=== PATIENT | male | born 1950 | race Caucasian/White ===

== ENCOUNTER → 2017-04-27 | Outpatient (CLI) | payer MEDICARE, BC ==
[~2017-04-27] MED LIST: ASPIR-TRIN325 MG PO; ASPIRIN CHILDRE81 M1 PO; BLOOD PRESSURE MED OR; FLEXERIL10 MG PO; HYDROCODONE/ACE1 TA5 PO; LIPITOR20 M1 PO; LISINOPRIL 10MG10 MG PO; METFORMIN500 MG PO; METOPROLOL25 MG PO; NAPROSYN 375MG375 MG PO; NORCO 325 MG-51 TAB PO; PLAVIX 75MG TAB75 MG PO; PLAVIX75 MG PO; PREDNISONE 20MG20 MG PO; VALIUM 5MG TABLE5 MG PO; VICODIN 5/500 T1 TAB PO; [UNRECOGNIZED DRUG - REMARK] OR
--- NOTE | 2017-04-27 20:48 | RADIOLOGY REPORT PS360 ---
KNEE-3 VIEWS-LT HISTORY: LEFT KNEE PAIN, EFFUSION ORDERING PHYSICIAN: Summer López MD PATIENT AGE: 66 years COMPARISON: None FINDINGS: No fracture or dislocation. No lytic or blastic change. Normal mineralization. There are minimal osteoarthritic changes of the medial compartment and patellofemoral joint. No fracture or dislocation. No lytic or blastic change. There is minimal chondrocalcinosis of the medial meniscus. IMPRESSION: Mild osteoarthritis with chondrocalcinosis
== END ==
LOC: RAD 17:07
DX: M25.562 Pain in left knee (principal)

== ENCOUNTER 2017-06-14 09:40 | Emergency (ER) | payer MEDICARE ==
[~2017-06-14] VITALS: Ht 188 cm; Wt 109.8 kg
[2017-06-14 10:05] LABS: LYMPH # 2.3 K/mm3 (0.7-4.5); LYMPH % 29.3 % (10-50)
[2017-06-14 10:12] LABS: HEMOGLOBIN 15.8 g/dL (14.1-18.0)
[2017-06-14 10:27] LABS: BUN 13 mg/dL (7-18)
[2017-06-14 10:30] LABS: GFR (ESTIMATED) 75 ML/MIN (>60)
--- NOTE | 2017-06-14 10:31 | Emergency Room Report ---
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 N Clinical Suspician of Infection? N Mental Status: 1 - Regular (Normal Baseline) Sepsis Risk:Low Sepsis Risk Have you (or family members/close friends) recently traveled outside the [place]? N If Yes, where/when: Have you had exposure to infectious disease within the past month? TB? Other? Specify: Source patient, RN notes reviewed, family, RN/MD Exam Limitations no limitations Comment This is a 66-year-old male patient presented emergency room with left- sided chest pain since 8:20 AM, radiating to the LEFT shoulder blade. Patient has been living some heavy batteries yesterday and thinks he might have pulled a muscle. He denies any shortness of breath, any diaphoresis. He has a history of coronary artery disease, with 2 stents deployed in 2011 (Dr Rodgers), shortly afterwards followed with an CABG. Patient denies any LEFT shoulder pain, describes chest pain as sharp, worse with movement. ALLERGIES Coded Allergies: No Known Allergies (06/14/17) Home Medications Active Scripts HYDROCODONE/ACETAMINOPHEN (Lortab 10-325 (generic) Tablet) 1 TAB PO Q6HP PRN pain #16 TAB Prov: 12/23/14 Cyclobenzaprine Hcl (Flexeril) 10 MG PO TIDP PRN pain #30 TAB Prov: 12/23/14 Reported Medications LISINOPRIL (Lisinopril) 10 MG PO DAILY Atorvastatin Calcium (Lipitor) 20 MG PO DAILY AT HS Metoprolol Tartrate (Metoprolol) 25 MG PO DAILY Aspirin (Aspir-Alix) 325 MG PO DAILY History Medical History General Angina: Yes [place]: Yes Hypertension? No Hyperlipidemia? No CHF? No COPD? No Asthma? No Hernia? Yes CVA? No Seizures? No Diabetes? Yes Insulin Dependent: No Insulin Pump: No Home FSBS? Yes UTI? No Stones? No GB Disease: No Hepatitis? No Cataracts? No Glaucoma? No MRSA? No TB? No Cancer? No Immunization Hx DT/Tetanus Unknown Flu NEVER Pneumonia NEVER Surgical Hx Previous Surgery?Y HERNIA X 3 KNEE OPEN HEART Family History Family Hx Diabetes Yes CAD Yes Hypertension Yes Hyperlipidemia Yes Cancer Yes TB No Social History Smoking Hx Smoker: Never Smoker Tobacco: No Alcohol Alcohol: No Review of Systems All Other Systems Reviewed and Negative Cardiovascular chest pain Physical Exam Vital Signs Vital Signs Date Time Temp Pulse Resp B/P Pulse O2 O2 Flow FiO2 Ox Delivery Rate 06/14 1259 98.1 72 16 137/73 100 06/14 1214 72 16 137/73 97 06/14 1128 66 16 120/70 100 06/14 1049 61 18 100 06/14 0944 98.1 65 18 151/99 100 General Appearance normal appearance, WD/WN, no apparent distress Respiratory Status Yes: trachea midline, chest symmetrical, non tender chest. No: respiratory distress. Lung Sounds bilateral: normal breath sounds, lungs clear. Cardiovascular normal exam, regular rate/rhythm, no peripheral edema, no gallop, no JVD, no murmur, no rub, normal peripheral pulses Peripheral Pulses Pulses normal Yes Gastrointestinal normal bowel sounds, normal exam, non tender, soft, no organomegaly Extremities non-tender, normal range of motion, normal inspection Neurologic alert, pocket maker II-XII nml as tested, normal exam, oriented x 3 Mental status normal mood/affect Skin intact, normal color, warm/dry Medical Decision Making LABS/Meds/Orders Pt receiving controlled substance in ED? No Comment 1215pm - upon reevaluation patient appears medically stable, in no acute distress, chest pain-free. By this time the patient underwent 2 sets of cardiac enzymes, both negative. 1220pm-case discussed over the phone with FELISA Carroll, advise patient condition and presentation, findings. Miguel advised that he will review child and come to the emergency room to evaluate patient. 1230pm-FELISA raymundo in the emergency room, evaluated patient, advising that patient is cleared by cardiology to be discharged home and he has an appointment with him, for next week, Tuesday, for an in office stress test. Results/Orders Laboratory Tests 06/14/17 1115: Creatine Kinase 121, CK-MB (CK-2) Rel Index 1.0, CK and CKMB Interp 1.2, Troponin I < 0.02 06/14/17 0929: Sodium 140, Potassium 4.2, Chloride 103, Carbon Dioxide 28, BUN 13, Creatinine 1.0, Estimated Creat Clear 113, Estimated GFR (MDRD) 75, Glucose 155 H, Calcium 9.1, Total Bilirubin 0.8, AST 18, ALT 31, Alkaline Phosphatase 104, Creatine Kinase 128, CK-MB (CK-2) Rel Index 1.1, CK and CKMB Interp 1.4, Troponin I < 0.02, Total Protein 7.7, Albumin 4.0, Globulin 3.7 H, Albumin/Globulin Ratio 1.1, WBC 7.9, RBC 4.78, Hgb 15.8, Hct 46.7, MCV 97.6, RDW 13.6, Plt Count 220, MPV 7.5, Gran % 60.4, Gran # 4.8, Lymphocytes % 29.3, Monocytes % 6.6, Eosinophils % 2.6, Basophils % 1.1, Lymphocytes # 2.3, Monocytes # 0.5, Eosinophils # 0.2, Basophils # 0.1, PUBS MCHC 33.6, MCH 32.8 H Current Medication Orders Sig/[place] Start time Last Medication Dose Route Stop Time Status Admin Sodium Chloride 10 ML PRN PRN 06/14 1000 DCD IV 06/15 0956 Orders Procedure Date/time Status CARDIAC ENZYMES 06/14 1131 Complete OP COURTSEY MEAL 06/14 1051 Active ELECTROCARDIOGRAM REQUEST 06/14 09 Active IV SALINE LOCK 06/14 0956 Active CBC WITH AUTO DIFF 06/14 0956 Complete CARDIAC ENZYMES 06/14 09 Complete CHEM 12 PROFILE 06/14 0956 Complete 12 LEAD EKG-KENNY (INITIAL) 06/14 UNK Active 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 of ischemic chgs, no ectopy, normal QRS, normal ID, normal EKG, no EKG for comparison, non-spec. ST/Twave chgs, ST elevation, ST depression, LBBB, RBBB, ectopy, abnormal Q waves XRAY/CT/US XRAY/CT/US XRAY chest XR interpretation by reviewed by me, discussed w/radiologist Xray Results no infiltrates, normal heart size, normal lung inflation jeanmarie Comment No acute ischemic changes Departure Departure Time of Disposition 1234 Disposition DC Home or Self Care(routine) Clinical Impression Primary Impression: Chest pain Qualifiers: Chest pain type: unspecified Qualified Code: R07.9 - Chest pain, unspecified Condition STABLE Referrals Ana Maria VINES,Bryce per Miguel Maddox's recommendations Patient Instructions DI for Chest Pain Additional Instructions Please follow-up with your dermatology nurse practitioner, per Miguel Maddox's directions. Discharge Counseling Counseled pt/family regarding diagnosis, test results, medications/RX, home care, follow up needs Comment Please return promtly to the ER for any recurrent symptoms (chest pain, dyspnea) . ED Critical Care Critical Care No at 1845
--- NOTE | 2017-06-14 10:31 | Emergency Room Report ---
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 N Clinical Suspician of Infection? N Mental Status: 1 - Regular (Normal Baseline) Sepsis Risk:Low Sepsis Risk Have you (or family members/close friends) recently traveled outside the [place]? N If Yes, where/when: Have you had exposure to infectious disease within the past month? TB? Other? Specify: Source patient, RN notes reviewed, family, RN/MD Exam Limitations no limitations Comment This is a 66-year-old male patient presented emergency room with left- sided chest pain since 8:20 AM, radiating to the LEFT shoulder blade. Patient has been living some heavy batteries yesterday and thinks he might have pulled a muscle. He denies any shortness of breath, any diaphoresis. He has a history of coronary artery disease, with 2 stents deployed in 2011 (Dr Rodgers), shortly afterwards followed with an CABG. Patient denies any LEFT shoulder pain, describes chest pain as sharp, worse with movement. ALLERGIES Coded Allergies: No Known Allergies (06/14/17) Home Medications Active Scripts HYDROCODONE/ACETAMINOPHEN (Lortab 10-325 (generic) Tablet) 1 TAB PO Q6HP PRN pain #16 TAB Prov: 12/23/14 Cyclobenzaprine Hcl (Flexeril) 10 MG PO TIDP PRN pain #30 TAB Prov: 12/23/14 Reported Medications LISINOPRIL (Lisinopril) 10 MG PO DAILY Atorvastatin Calcium (Lipitor) 20 MG PO DAILY AT HS Metoprolol Tartrate (Metoprolol) 25 MG PO DAILY Aspirin (Aspir-Alix) 325 MG PO DAILY History Medical History General Angina: Yes [place]: Yes Hypertension? No Hyperlipidemia? No CHF? No COPD? No Asthma? No Hernia? Yes CVA? No Seizures? No Diabetes? Yes Insulin Dependent: No Insulin Pump: No Home FSBS? Yes UTI? No Stones? No GB Disease: No Hepatitis? No Cataracts? No Glaucoma? No MRSA? No TB? No Cancer? No Immunization Hx DT/Tetanus Unknown Flu NEVER Pneumonia NEVER Surgical Hx Previous Surgery?Y HERNIA X 3 KNEE OPEN HEART Family History Family Hx Diabetes Yes CAD Yes Hypertension Yes Hyperlipidemia Yes Cancer Yes TB No Social History Smoking Hx Smoker: Never Smoker Tobacco: No Alcohol Alcohol: No Review of Systems All Other Systems Reviewed and Negative Cardiovascular chest pain Physical Exam Vital Signs Vital Signs Date Time Temp Pulse Resp B/P Pulse O2 O2 Flow FiO2 Ox Delivery Rate 06/14 1259 98.1 72 16 137/73 100 06/14 1214 72 16 137/73 97 06/14 1128 66 16 120/70 100 06/14 1049 61 18 100 06/14 0944 98.1 65 18 151/99 100 General Appearance normal appearance, WD/WN, no apparent distress Respiratory Status Yes: trachea midline, chest symmetrical, non tender chest. No: respiratory distress. Lung Sounds bilateral: normal breath sounds, lungs clear. 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 No Comment 1215pm - upon reevaluation patient appears medically stable, in no acute distress, chest pain-free. By this time the patient underwent 2 sets of cardiac enzymes, both negative. 1220pm-case discussed over the phone with FELISA Carroll, advise patient condition and presentation, findings. Miguel advised that he will review child and come to the emergency room to evaluate patient. 1230pm-FELISA raymundo in the emergency room, evaluated patient, advising that patient is cleared by cardiology to be discharged home and he has an appointment with him, for next week, Tuesday, for an in office stress test. Results/Orders Laboratory Tests 06/14/17 1115: Creatine Kinase 121, CK-MB (CK-2) Rel Index 1.0, CK and CKMB Interp 1.2, Troponin I < 0.02 06/14/17 0929: Sodium 140, Potassium 4.2, Chloride 103, Carbon Dioxide 28, BUN 13, Creatinine 1.0, Estimated Creat Clear 113, Estimated GFR (MDRD) 75, Glucose 155 H, Calcium 9.1, Total Bilirubin 0.8, AST 18, ALT 31, Alkaline Phosphatase 104, Creatine Kinase 128, CK-MB (CK-2) Rel Index 1.1, CK and CKMB Interp 1.4, Troponin I < 0.02, Total Protein 7.7, Albumin 4.0, Globulin 3.7 H, Albumin/Globulin Ratio 1.1, WBC 7.9, RBC 4.78, Hgb 15.8, Hct 46.7, MCV 97.6, RDW 13.6, Plt Count 220, MPV 7.5, Gran % 60.4, Gran # 4.8, Lymphocytes % 29.3, Monocytes % 6.6, Eosinophils % 2.6, Basophils % 1.1, Lymphocytes # 2.3, Monocytes # 0.5, Eosinophils # 0.2, Basophils # 0.1, PUBS MCHC 33.6, MCH 32.8 H Current Medication Orders Sig/[place] Start time Last Medication Dose Route Stop Time Status Admin Sodium Chloride 10 ML PRN PRN 06/14 1000 DCD IV 06/15 0956 Orders Procedure Date/time Status CARDIAC ENZYMES 06/14 1131 Complete OP COURTSEY MEAL 06/14 1051 Active ELECTROCARDIOGRAM REQUEST 06/14 09 Active IV SALINE LOCK 06/14 0956 Active CBC WITH AUTO DIFF 06/14 0956 Complete CARDIAC ENZYMES 06/14 09 Complete CHEM 12 PROFILE 06/14 0956 Complete 12 LEAD EKG-KENNY (INITIAL) 06/14 UNK Active 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 of ischemic chgs, no ectopy, normal QRS, normal IL, normal EKG, no EKG for comparison, non-spec. ST/Twave chgs, ST elevation, ST depression, LBBB, RBBB, ectopy, abnormal Q waves XRAY/CT/US XRAY/CT/US XRAY chest XR interpretation by reviewed by me, discussed w/radiologist Xray Results no infiltrates, normal heart size, normal lung inflation jeanmarie Comment No acute ischemic changes Departure Departure Time of Disposition 1234 Disposition DC Home or Self Care(routine) Clinical Impression Primary Impression: Chest pain Qualifiers: Chest pain type: unspecified Qualified Code: R07.9 - Chest pain, unspecified Condition STABLE Referrals Ana Maria VINES,Bryce per Miguel Maddox's recommendations Patient Instructions DI for Chest Pain Additional Instructions Please follow-up with your vp communications, per Miguel Maddox's directions. Discharge Counseling Counseled pt/family regarding diagnosis, test results, medications/RX, home care, follow up needs Comment Please return promtly to the ER for any recurrent symptoms (chest pain, dyspnea) . ED Critical Care Critical Care No at 1849
--- OUTSIDE RECORDS SUMMARY | 2017-06-14 10:41 | External Medical Summary Rpt | CCD ---
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
--- OUTSIDE RECORDS SUMMARY | 2017-06-14 10:41 | External Medical Summary Rpt | CCD ---
Author Author [employer] Organization [employer] Address Unknown Phone Unavailable Purpose Continuity of Care Document - through 2016
--- OUTSIDE RECORDS SUMMARY | 2017-06-14 10:41 | External Medical Summary Rpt | CCD ---
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
--- OUTSIDE RECORDS SUMMARY | 2017-06-14 10:42 | External Medical Summary Rpt ---
Author Author MARÍA Ballesteros, MAR[employer] Organization [employer] Address Unknown Phone Unavailable Results CBC W Auto Differential panel in Blood Observa Value Referen Units Interpr Notes Date tion ce etation Range Basophils 0 - 0.2 K/MM3 Normal No Jun 14 informati 2017 9:29 [#/volume on in AM ] in source Blood by data Automated count Basophils 0.1 - 2.0 % Normal No Jun 14 informati 2016 9:29 leukocyte on in AM s in source Blood by data Automated count Eosinophi 0.0 - 0.4 K/mm3 Normal No Jun 14 ls informati 2016 9:29 [#/volume on in AM ] in source Blood by data Automated count Eosinophi 0.1 - % Normal No Jun 14 ls/100 12.0 informati 2016 9:29 leukocyte on in AM s in source Blood by data Automated count Granulocy 1.3 - 8.0 K/mm3 Normal No Jun 14 julia informati 2017 9:29 [#/volume on in AM ] in source Blood by data Automated count Granulocy 37.0 - % Normal No Jun 14 julia/100 80.0 informati 2017 9:29 leukocyte on in AM s in source Blood by data Automated count Hematocri 42.0 - % Normal No Jun 14 t [Volume 52.0 informati 2016 9:29 on in AM Fraction] source of Blood data Hemoglobi 14.1 - g/dL No No Jun 14 n 18.0 informati informati 2017 9:29 [Mass/vol on in on in AM ume] in source source Blood data data Lymphocyt 0.7 - 4.5 K/mm3 Normal No Jun 14 es informati 2016 9:29 [#/volume on in AM ] in source Unspecifi data ed specimen by Automated count Lymphocyt 10 - 50 % Normal No Jun 14 es informati 2016 9:29 [#/volume on in AM ] in source Unspecifi data ed specimen by Automated count Erythrocy 27 - 31.2 pg High No Jun 14 te mean informati 2017 9:29 corpuscul on in AM ar source hemoglobi data n [Entitic mass] Erythrocy 31.8 - g/dl Normal No Jun 14 te mean 35.4 informati 2017 9:29 corpuscul on in AM ar source hemoglobi data n concentra tion [Mass/vol ume] by Automated count Erythrocy 82.2 - fl Normal No Jun 14 te mean 97.8 informati 2017 9:29 corpuscul on in AM ar volume source [Entitic data volume] by Automated count Monocytes 0.1 - 1.0 K/mm3 Normal No Jun 14 informati 2017 9:29 [#/volume on in AM ] in source Blood by data Automated count Monocytes 1.7 - 9.3 % Normal No May 24 /100 informati 2017 9:29 leukocyte on in AM s in source Blood by data Automated count Platelet 7.4 - fl Normal No Jun 14 mean 10.4 informati 2017 9:29 volume on in AM [Entitic source volume] data in Blood by Automated count Platelets 142 - 424 K/mm3 Normal No Jun 14 informati 2017 9:29 [#/volume on in AM ] in source Blood data Erythrocy 4.6 - 6.2 M/mm3 Normal No May 24 julia informati 2017 9:29 [#/volume on in AM ] in source Amniotic data fluid Erythrocy 11.5 - % Normal No May 24 te 17.5 informati 2017 9:29 distribut on in AM ion width source [Entitic data volume] by Automated count Leukocyte 4.8 - K/MM3 Normal No May 24 s 10.8 informati 2016 9:29 [#/volume on in AM ] in source Blood data
--- OUTSIDE RECORDS SUMMARY | 2017-06-14 10:42 | External Medical Summary Rpt | CCD ---
Demographics Preferred Language Scottish Marital Status Unknown Caodaism Affiliation Unknown Race Unknown Ethnic Group Unknown Author Author , MARÍA DANIEL Address Unknown Phone Immunization No patient found.
--- OUTSIDE RECORDS SUMMARY | 2017-06-14 10:42 | External Medical Summary Rpt | CCD ---
Demographics Preferred Language Slovenian Marital Status Unknown Restorationist Affiliation Unknown Race Unknown Ethnic Group Unknown Author Author , MARÍA DANIEL Address Unknown Phone Immunization No patient found.
--- NOTE | 2017-06-14 11:00 | RADIOLOGY REPORT PS360 ---
CHEST(2 VIEWS-NOT PORTABLE) HISTORY: CHEST PAIN, HISTORY OF IN X 2, CABG ORDERING PHYSICIAN: Juan José Iglesias MD PATIENT AGE: 66 years COMPARISON: 04/05/2012 FINDINGS: There has been a prior median sternotomy with CABG. There is normal heart size. The lungs are clear without infiltrates, suspicious nodules, or pleural effusions. No acute bony abnormalities. IMPRESSION: No change with no acute finding
--- NOTE | 2017-06-14 11:00 | RADIOLOGY REPORT PS360 ---
CHEST(2 VIEWS-NOT PORTABLE) HISTORY: CHEST PAIN, HISTORY OF AR X 2, CABG ORDERING PHYSICIAN: Juan José Iglesias MD PATIENT AGE: 66 years COMPARISON: 04/05/2012 FINDINGS: There has been a prior median sternotomy with CABG. There is normal heart size. The lungs are clear without infiltrates, suspicious nodules, or pleural effusions. No acute bony abnormalities. IMPRESSION: No change with no acute finding
[2017-06-14 12:59] VITALS: BP 137/73
== END 2017-06-14 13:00 | disposition home or self-care (01) ==
LOC: ER 09:40
PROVIDERS: Emergency Medicine
DX: R07.9 Chest pain, unspecified (principal); I25.10 Atherosclerotic heart disease of native coronary artery without angina pectoris; Z95.1 Presence of aortocoronary bypass graft; I10 Essential (primary) hypertension; E11.9 Type 2 diabetes mellitus without complications; Z79.82 Long term (current) use of aspirin

== ENCOUNTER → 2017-06-30 | Outpatient (CLI) | payer MEDICARE ==
--- NOTE | 2017-06-30 14:46 | CARDIOVASCULAR REPORT ---
"Cerebrovascular Exam Indications: 785.9 Bruit. IMPRESSIONS 1. The bilateral vertebral arteries are patent with normal antegrade flow. 2. Study suggests 50-69% stenosis involving the right internal carotid artery, lower end of the scale. 3. Study suggests less than 20% stenosis involving the left internal carotid artery. Carotid duplex study. Complete study and Doppler flow study including spectral analysis, color and galvez scale imaging. Height: Height: 188cm. Height: 74in. Weight: Weight: 115.2kg. Weight: 253.5lb. Body mass index: BMI: 32.6kg/m^2. Body surface area: BSA: 2.48m^2. Location: Vascular laboratory. Patient status: Outpatient. Tables: Arterial flow: + +--------+--------+ |Location |V sys |V ed | + +--------+--------+ |Right CCA - proximal|89.9cm/s|20.7cm/s| + +--------+--------+ |Right CCA - distal |97.2cm/s|30cm/s | + +--------+--------+ |Right ECA |139cm/s |--------| + +--------+--------+ |Right ICA - proximal|144cm/s |32.7cm/s| + +--------+--------+ |Right ICA - mid |98.1cm/s|27.9cm/s| + +--------+--------+ |Right ICA - distal |75.2cm/s|22.7cm/s| + +--------+--------+ |Right vertebral |46.4cm/s|--------| + +--------+--------+ |Left CCA - proximal |97.1cm/s|36.2cm/s| + +--------+--------+ |Left CCA - distal |105cm/s |32.6cm/s| + +--------+--------+ |Left ECA |126cm/s |--------| + +--------+--------+ |Left ICA - proximal |115cm/s |31.3cm/s| + +--------+--------+ |Left ICA - mid |81.6cm/s|26.1cm/s| + +--------+--------+ |Left ICA - distal |80.2cm/s|17cm/s | + +--------+--------+ |Left vertebral |54.6cm/s|--------| + +--------+--------+ Velocity ratios: + + + + + + | |Right, V sys|Right, V ed|Left, V sys|Left, V ed| + + + + + + |Max ICA/dist CCA|1.48 |1.09 |1.1 |0.96 | + + + + + + (Report amended ) Electronically signed by: Marko Mosley [id number]"
== END ==
LOC: RT 06-24 14:30
DX: I65.23 Occlusion and stenosis of bilateral carotid arteries (principal)